=== PATIENT | female | born 1955 ===

== ENCOUNTER 2020-07-14 11:53 | Outpatient (REF) | payer MEDICARE, SELFPAY ==
--- NOTE | ~2020-07-14 | XR_ITS ---
EXAMINATION: XR KNEE, RIGHT CLINICAL INFORMATION: Right knee pain. COMPARISON: None TECHNIQUE: Four views of the right knee. FINDINGS: Mild medial femoral-tibial joint space narrowing is seen. Moderate lateral patellofemoral joint space narrowing is seen. There is no acute fracture or dislocation. No significant joint effusion is seen. The soft tissues are unremarkable. XR/XR knee RT 4V IMPRESSION: Medial femoral-tibial and lateral patellofemoral degenerative joint changes suggesting osteoarthritis.
== END 2020-07-14 11:54 | disposition home or self-care (01) ==
LOC: HO.XRAY 11:53
PROVIDERS: PCP Internal Medicine; Visit Provider Nurse Practitioner Primary Care
DX: M25.561 Pain in right knee (principal)
CPT/HCPCS: 73564

== ENCOUNTER 2022-02-21 13:01 | Outpatient (REF) | payer MEDICARE, SELFPAY ==
--- NOTE | ~2022-02-21 | MM_ITS ---
EXAMINATION: BONE DENSITOMETRY CLINICAL INDICATION: Osteoporosis. COMPARISON: None (current study represents initial baseline exam). TECHNIQUE: Using a [employer] DXA System (software version: 13.1) manufactured by [employer] dual-energy x-ray absorptiometry was performed of the lumbar spine and left hip. The images are of good technical quality. Summary results are attached. FINDINGS: AP SPINE L1-L3 (excluding L4): The data of L1-L4 has been changed to exclude the L4 vertebral body, because degenerative changes at this level may cause overestimation of lumbar spine density. BMD 0.925 g/cm2, Z-score -0.8, T-score -2.0, osteopenia. LEFT FEMUR, NECK: BMD 0.832 g/cm2, Z-score -0.1, T-score -1.5, osteopenia. LEFT FEMUR, TOTAL: BMD 1.008 g/cm2, Z-score 1.1, T-score 0.0, normal. IDENTIFIED RISK FACTORS: Early menopause, secondary osteoporosis, tobacco user (current smoker). HISTORY OF FRACTURE: None listed. MEDICATIONS: Multivitamin, vitamin D. MM/XR DEXA axial skeleton IMPRESSION: 1. DIAGNOSIS: Osteopenia based on the lowest T-score value of -2.0 in the lumbar spine applying World Health Organization criteria. 2. 10-YEAR FRACTURE RISK PREDICTION, FRAX: Major osteoporotic fracture (clinical spine, forearm, hip or shoulder) 5.2%. Hip fracture 1.0%. 3. Treatment Recommendations: NOF guidelines recommend consideration for treatment in postmenopausal women and men age 50 and older presenting with the following: -A hip or vertebral (clinical or morphometric) fracture. -T-score less than or equal to -2.5 at the femoral neck or spine after appropriate evaluation to exclude secondary causes. -Low bone mass at the hip or spine and a 10-year fracture probability by FRAX of greater than or equal to 3% for hip fracture or greater than or equal to 20% for major osteoporotic fracture based on the [place] adapted WHO algorithm. 4. Other Recommendations: All treatment decisions require clinical judgment and consideration of individual patient factors, including patient preferences, comorbidities, previous drug use, risk factors not captured in the FRAX model (e.g. frailty, falls, vitamin D deficiency, increased bone turnover, interval significant decline in bone density) and possible under or overestimation of fracture risk by FRAX. Additional medical evaluation for secondary cause of low bone mineral density may be appropriate. FUTURE SCAN RECOMMENDATION: People with diagnosed cases of osteoporosis or at high risk for fracture should have regular bone mineral density tests. For patients eligible for Medicare, routine testing is allowed once every 2 years. The testing frequency can be increased to one year for patients who have rapidly progressing disease, those who are receiving or discontinuing medical therapy to restore bone mass, or have additional risk factors.
== END 2022-02-21 13:02 | disposition home or self-care (01) ==
LOC: HO.MAMMO 13:01
PROVIDERS: PCP Internal Medicine; Visit Provider Internal Medicine
DX: Z13.820 Encounter for screening for osteoporosis (principal); Z78.0 Asymptomatic menopausal state
CPT/HCPCS: 77080

== ENCOUNTER 2023-07-22 09:18 | Outpatient (REF) | payer MEDICARE, SELFPAY ==
[2023-07-22 14:15] LABS: MANUAL DIFF FLAG NO
[2023-07-22 14:27] LABS: Basophils Absolute Auto 0.1 X10*3/uL (0.0-0.2); Basophils Percent Auto 0.9 % (0-2); Eosinophils Absolute Auto 0.1 X10*3/uL (0.0-0.4); Eosinophils Percent Auto 1.7 % (0-4); Hematocrit 37.5 % (37.0-47.0); Hemoglobin 12.2 g/dl (12.0-16.0); Imm Gran Abs Auto 0.01 X10*3/uL (0.00-0.03); Imm Gran Pct Auto 0.2 % (0.0-0.4); Lymphocytes Absolute Auto 2.2 X10*3/uL (1.2-4.9); Lymphocytes Percent Auto 35.3 % (20-40); Mean Corpuscular HGB Conc 32.5 g/dl (31.0-35.0); Mean Corpuscular Hemoglobin 30.3 pg (27.0-33.0); Mean Corpuscular Volume 93.1 fL (80.0-98.0); Mean Platelet Volume 11.1 fL (9.4-12.3); Monocytes Absolute Auto 0.6 X10*3/uL (0.1-1.2); Monocytes Percent Auto 8.9 % (2-11); Neutrophils Absolute Auto 3.4 x10*3/uL (2.0-8.3); Platelet Count 262 X10*3/uL (160-400); Red Blood Count 4.03 X10*6/uL (4.20-5.50); Red Cell Distribution Width 13.6 % (11.0-16.0); White Blood Count 6.3 X10*3/uL (4.8-10.8)
[2023-07-22 15:12] LABS: Alanine Aminotransferase 14 U/L (0-31); Albumin Level 3.9 g/dL (3.5-5.0); Alkaline Phosphatase 86 U/L (39-117); Anion Gap 11 (12-20); Aspartate Amino Transferase 20 U/L (5-31); Bilirubin Total 0.3 mg/dL (0.0-1.0); Blood Urea Nitrogen 10 mg/dL (9-16); Calcium 9.3 mg/dL (8.4-10.2); Carbon Dioxide 33 mmol/L (22-29); Chloride 100 mmol/L (96-108); Cholesterol 219 mg/dL (<200); Estimated Glomerular Filt Rate > 60; Glucose Random 121 mg/dL (60-115); HDL Cholesterol 50 mg/dL (>40); LDL Cholesterol Calculated 141 mg/dL (<100); Potassium 3.2 mmol/L (3.3-5.1); Sodium 141 mmol/L (135-145); Triglycerides 144 mg/dL (<150)
[2023-07-22 15:13] LABS: TSH reflex Free T4 4.18 uIU/mL (0.32-4.0)
[2023-07-22 15:44] LABS: Free T4 (Free Thyroxine) 0.97 ng/dL (0.71-1.85)
[2023-07-23 07:41] LABS: ~HepC Num1 0.07 S/CO (0.00-0.79); ~Hepatitis C Antibody Nonreactive (Nonreactive)
== END 2023-07-22 09:19 | disposition home or self-care (01) ==
LOC: HO.CHCLDS 09:18
PROVIDERS: Visit Provider Internal Medicine
DX: I10 Essential (primary) hypertension (principal)
CPT/HCPCS: 36415; 80053; 80061; 84439; 84443; 85025; 86803

== ENCOUNTER 2023-10-18 09:54 | Outpatient (AMB) | payer MEDICARE, SELFPAY ==
--- NOTE | 2023-10-18 07:53 | A.OFFVIS_ITS ---
Intake Visit Reasons: LDCT SD HPI HPI LDCT SD: Details: Initial visit for this 68yo smoker with a 27PYH. Patient has been smoking since age 12 for 53yo years at 1/2ppd. . Denies marijuana use. Denies second hand smoke exposure. Denies exposure to chemicals or substances like asbestos. . Denies known family history of lung cancer. Denies personal history of cancers. Denies chest CT in last year. . Denies recent travel outside the [place]. Denies recent respiratory illness or recent hospitalization for respiratory issues. Reports testing positive for COVID. Admits receiving COVID Vaccine. . Denies fever, chills, new/worsening cough, hemoptysis, hoarseness or dysphagia. Denies significant chest pain, significant dyspnea or unintentional weight loss. Patient Lung Cancer Screening Questionnaire reviewed with patient by provider. . Shared Decision Making Completed. Patient meets criteria. Discussed in detail with patient, the risk vs benefit of LDCT screening. Patient consents to proceed with scan. Discussed smoking cessation. [facility] Medical History Osteopenia Nicotine dependence, cigarettes, uncomplicated Surgical History (Updated 10/18/23 @ 10:19 by Zita Tristan PA-C) History of right inguinal hernia repair History of cholecystectomy Social History (Updated 10/18/23 @ 10:23 by Zita Tristan PA-C) Patient Tobacco Use Status: Current everyday Tobacco user Years Smoked: - onset 12yo, 1/2ppd x 53yrs, 27pyh Assessment & Plan Assessment & Plan (1) Nicotine dependence, cigarettes, uncomplicated: Comment: (current smoker - onset 12yo, 1/2ppd x 53yrs, 27pyh) Code(s): F17.210 - Nicotine dependence, cigarettes, uncomplicated Category: Medical Plan: - SDM visit completed today in office. - Patient meets criteria for LDCT for lung cancer screening purposes and is asymptomatic. - Smoking cessation counseling offered. Patients can always call [phone]. - Will arrange for a LDCT scan of the chest for screening purposes at [facility]. - Risks, benefits, and alternatives were discussed in detail and the patient agrees to proceed. - Risks discussed include but are not limited to: radiation exposure, anxiety during testing and while awaiting results, false negatives, false positives and possibility of additional intervention such as further imaging or surgical procedures for benign disease. - Benefits are obviously detection of lung cancer at an early stage which can lead to improved outcomes. - Discussed the importance of screening program compliance with adherence to yearly LDCT scan as scheduled - or sooner interval scans for personalized screening regimen. - Discussed follow up plan. Our office will send a letter discussing results and if needed set up phone call and office visit based on CT findings. - Patient educated on results categorization and the management decisions for suspicious findings potentially found on the screening LDCT scan. Any patient with a Lung RADS score of 3 or 4 will be reviewed by a multidisciplinary team at [facility] to form a plan of action in regards to scan findings. - If further work up is warranted for a suspicious lung finding this will be followed by the Lung Cancer Screening program in conjunction with the Thoracic Surgery Department at [facility]. - A copy of the office note and LDCT will be sent to the patient's PCP - as well as documentation on any associated further plans of care. - Incidental findings on LDCT are the PCP's responsibility. These findings are indicated with an S finding on the LDCT Assessment. A note discussing the findings will be sent to the PCP who is then responsible for further management. - All questions answered.? Coding Level of Care Code Lung Cancer Screening G0296 Diagnoses Nicotine dependence, cigarettes, uncomplicated F17.210
== END 2023-10-18 10:47 | disposition home or self-care (01) ==
PROVIDERS: PCP Internal Medicine; Referring Provider Internal Medicine; Visit Provider Physician Assistant Medical
DX: F17.210 Nicotine dependence, cigarettes, uncomplicated (principal)
CPT/HCPCS: G0296

== ENCOUNTER 2023-10-18 10:24 | Outpatient (REF) | payer MEDICARE, SELFPAY ==
--- NOTE | ~2023-10-18 | CT_ITS ---
EXAMINATION: CT LOW-DOSE SCREENING CHEST WITHOUT CONTRAST CLINICAL INFORMATION: Nicotine dependence, cigarettes, uncomplicated. The patient is a current smoker with a 55 pack-year history of smoking. COMPARISON: None available. TECHNIQUE: Multidetector volumetric CT imaging of the chest is performed on a Siemens SOMATOM Definition scanner without contrast using low dose technique. Additional 2D coronal and sagittal reformatted images and axial 3D maximum intensity projection (MIP) images are generated on the CT workstation. This CT examination was performed using dose optimization techniques as appropriate, variously including the following: *Automated exposure control. *Adjustment of mA and/or kV according to patient size (this includes techniques or standardized protocols for targeted exams where dose is matched to indication/reason for exam; i.e. extremities or head). *Use of iterative reconstruction technique. TOTAL EXAM DLP: 56 mGy-cm. CTDIvol: 1.85 mGy. FINDINGS: PULMONARY NODULES: No suspicious pulmonary nodules. LUNGS: Lungs bilaterally symmetrically expanded. There is mild emphysema and bronchial thickening without bronchiectasis. No effusion or pneumothorax. Central airways patent. MEDIASTINUM: No mediastinal, hilar or axillary adenopathy or free fluid collection. CORONARY ARTERY CALCIFICATION: None visualized on this study. THYROID GLAND: Unremarkable to the extent seen. CARDIOVASCULAR STRUCTURES: Aortic and heart size normal. No pericardial effusion. CHEST WALL/AXILLA: Unremarkable. UPPER ABDOMEN: Status post cholecystectomy. OSSEOUS STRUCTURES: No suspicious focal findings. CT/CT lung screening IMPRESSION: No findings seen suspicious for malignancy. ASSESSMENT: 1. Lung-RADS Category 1: Negative. There are no nodules or there are definitely benign nodules. N/A. 2. Lung-RADS Category S: Negative. There are no clinically significant or potentially clinically significant findings not related to the lungs requiring urgent additional evaluation. RECOMMENDATION: Continued routine annual low-dose CT lung screening in 1 year is recommended. An order for CT CHEST LOW DOSE CANCER SCREENING ([id number]) can be placed. Electronically signed by: Andrei Blakely MD 12/02/2023 09:08 PM EDT
== END 2023-10-18 10:25 | disposition home or self-care (01) ==
LOC: HO.CT 10:24
PROVIDERS: PCP Nurse Practitioner Primary Care; Visit Provider Physician Assistant Medical
DX: Z12.2 Encounter for screening for malignant neoplasm of respiratory organs (principal); F17.210 Nicotine dependence, cigarettes, uncomplicated
CPT/HCPCS: 71271; G0296

== ENCOUNTER 2024-03-03 14:28 | Outpatient (REF) | payer MEDICARE, SELFPAY ==
[2024-03-03 17:33] LABS: MANUAL DIFF FLAG NO
[2024-03-03 17:41] LABS: Basophils Absolute Auto 0.1 X10*3/uL (0.0-0.2); Basophils Percent Auto 0.9 % (0-2); Eosinophils Absolute Auto 0.1 X10*3/uL (0.0-0.4); Eosinophils Percent Auto 1.8 % (0-4); Hematocrit 37.4 % (37.0-47.0); Hemoglobin 12.1 g/dl (12.0-16.0); Imm Gran Abs Auto 0.02 X10*3/uL (0.00-0.03); Imm Gran Pct Auto 0.3 % (0.0-0.4); Lymphocytes Absolute Auto 2.7 X10*3/uL (1.2-4.9); Lymphocytes Percent Auto 35.7 % (20-40); Mean Corpuscular HGB Conc 32.4 g/dl (31.0-35.0); Mean Corpuscular Hemoglobin 29.8 pg (27.0-33.0); Mean Corpuscular Volume 92.1 fL (80.0-98.0); Mean Platelet Volume 11.1 fL (9.4-12.3); Monocytes Absolute Auto 0.7 X10*3/uL (0.1-1.2); Monocytes Percent Auto 8.6 % (2-11); Neutrophils Percent Auto 52.7 % (45-73); Platelet Count 286 X10*3/uL (160-400); Red Blood Count 4.06 X10*6/uL (4.20-5.50); Red Cell Distribution Width 13.2 % (11.0-16.0); White Blood Count 7.7 X10*3/uL (4.8-10.8)
[2024-03-03 18:02] LABS: Anion Gap 12 (12-20); Blood Urea Nitrogen 15 mg/dL (9-16); Calcium 9.5 mg/dL (8.4-10.2); Carbon Dioxide 31 mmol/L (22-29); Chloride 101 mmol/L (96-108); Estimated Glomerular Filt Rate > 60; Glucose Random 124 mg/dL (60-115); Magnesium 2.1 mg/dL (1.6-2.6); Potassium 3.1 mmol/L (3.3-5.1); Sodium 141 mmol/L (135-145)
== END 2024-03-03 14:29 | disposition home or self-care (01) ==
LOC: HO.CHCLDS 14:28
PROVIDERS: Visit Provider Nurse Practitioner Family
DX: M54.2 Cervicalgia (principal); R42 Dizziness and giddiness
CPT/HCPCS: 36415; 80048; 83735; 85025

== ENCOUNTER 2025-01-04 16:32 | Outpatient (REF) | payer MEDICARE, SELFPAY ==
--- NOTE | ~2025-01-04 | CT_ITS ---
CLINICAL HISTORY: F17.210 - Nicotine dependence, cigarettes, uncomplicated CT lung cancer screening Technique: Axial CT images of the chest using low-dose technique. Effective radiation dose: DLP 48.4 mGy.cm, CTDIvol 1.46 mGy Referring provider counseled the patient on shared decision-making for LDCT screening. Additional counseling was provided on smoking cessation. Comparison: 10/18/2023 Findings: Lung nodules RUL: None RML: None RLL: None SHERRELL: None Lingula: None LLL: None COPD: No significant emphysematous disease. Pleural spaces: Normal Coronary artery calcifications: None Limited upper abdomen: Unremarkable Other: None Impression: LungRADS 1: Negative exam. Continue annual screening with low dose Chest CT in 12 months. ##L1## This document has been electronically signed by: Vazquez Ayala MD on 01/05/2025 16:20:16
--- OUTSIDE RECORDS SUMMARY | 2025-01-04 20:26 | XMS_ITS | Encounter Summary ---
Author Organization [employer] Address [address] [facility] [address] [place] [address] Care Team Providers Care Commercial Roofing Estimator Name Role Phone Cristian Perales MD Primary Care Prov ider Encounter Details Date Type Department Care Team (Late st Contact Info) Description 02/22/2022 Orders Only [facility] [address] [place] [address] Cristian Perales MD [address], [place] [phone] Osteopenia of multiple sites (Primary Dx) Social History Tobacco Use Types Packs/Day Years Used Date Smoking Tobacco: Every Day Cigarettes Depression Answer Date Recorded Patient Health Questionnaire-9 Score 0 01/26/2022 Depression Answer Date Recorded Patient Health Questionnaire-2 Score 0 01/26/2022 Comments Unknown Sex and Gender Information Value Date Recorded Sex Assigned at Female 12/11/2021 10:36 AM EDT Legal Sex Female 10:36 AM EDT Gender Identity Choose not to disclose 10:36 AM EDT Sexual Orientation Choose not to disclose 2021 10:36 AM EDT COVID-19 Exposure Response Date Recorded In the last 10 days, have yo u been in contact with someone who was confirmed or suspected to have Coronavirus/COVID-19? No / Unsure 01/26/2022 8:39 AM EST documented as of this encounter Plan of Treatment Not on file documented as of this encounter Visit Diagnoses Diagnosis Osteopenia of multiple sites- Primary documented in this encounter Additional Health Concerns Assessment Noted Time PHQ-9 Depression Total Score: 0 01/27/20 22 8:59 AM EST documented as of this encounter Care Teams Commercial Roofing Estimator Relationship Specialty Start Date End Date Cristian Perales MD [address] [place] [phone] PCP - General Internal Medicine 05/18/19 documented as of this encounter
--- OUTSIDE RECORDS SUMMARY | 2025-01-04 20:26 | XMS_ITS | Encounter Summary ---
Author Organization [employer] Address [address] [facility] [address] [place] [address] Care Team Providers Care Neonatal Social Worker Name Role Phone Cristian Perales MD Primary Care Prov ider Encounter Details Date Type Department Care Team (Late st Contact Info) Description 12/08/2024 Orders Only [facility] [address] [place] [address] Provider, MD Diana Social History Tobacco Use Types Packs/Day Years Used Date Smoking Tobacco: Every Day Cigarettes 0.5 45 Smokeless Tobacco: Never Alcohol Use Standard Drinks/Week Comments Never 0 (1 standard drink = 0.6 oz pur e alcohol) Depression Answer Date Recorded Patient Health Questionnaire-9 Score 0 07/16/2023 Patient Health Questionnaire-9 Score 0 07/16/2023 Last PHQ-9: Questionnaire Data Not on file 0 07/16/2023 Housing Stability Answer Date Recorded What is your housing situation today? I have nelson franklin 07/16/[address] you li ve. Do you have problems with any of the following? None of the above 07/16/2023 Food Insecurity Answer Date Recorded Within the past 12 months, y ou worried that your food would run out before you got money to buy more: Never True 07/16/2023 Within the past 12 months,th e food you bought just didn't last and you didn't have enough money to get more: Never True 05/2023 Transportation Answer Date Recorded In the past 12 months, has l ack of transportation kept you from medical appts, meetings, work or from getting things needed for daily living? No 07/16/2023 Utilities Answer Date Recorded In the past 12 months, has t he electric, gas, oil or water company threatened to shut off services in your home? No 07/16/2023 Depression Answer Date Recorded Patient Health Questionnaire-2 Score 0 07/16/2023 Comments Unknown Sex and Gender Information Value Date Recorded Sex Assigned at Female 12/11/2021 10:36 AM EDT Legal Sex Female 10:36 AM EDT Gender Identity Choose not to disclose 10:36 AM EDT Sexual Orientation Choose not to disclose 2021 10:36 AM EDT documented as of this encounter Plan of Treatment Not on file documented as of this encounter Procedures Procedure Name Priority Date/Time Associated Diagnosis Comments MAMMOGRAPHY Routine 12/07/2024 1:17 PM EDT documented in this encounter Results * Hm Mammography (12/07/2024 1:17 PM EDT) Anatomical Region Laterality Modality Other Historical Provider HEALTH MAINTENANCE Final Result documented in this encounter Visit Diagnoses Not on filedocumented in this encounter Additional Health Concerns Assessment Noted Time PHQ-9 Depression Total Score: 0 07/16/19 24 1:56 PM EDT documented as of this encounter Care Teams Neonatal Social Worker Relationship Specialty Start Date End Date Cristian Perales MD [address] [place] [phone] PCP - General Internal Medicine 05/18/19 documented as of this encounter
--- OUTSIDE RECORDS SUMMARY | 2025-01-04 20:26 | XMS_ITS | Encounter Summary ---
Author Organization [employer] Address [address] [facility] [address] [place] [address] Care Team Providers Care Pressure Test Operator Name Role Phone Cristian Perales MD Primary Care Prov ider Encounter Details Date Type Department Care Team (Late st Contact Info) Description 08/29/2022 Orders Only [facility] [address] [place] [address] Génesis Castillo LPN Social History Tobacco Use Types Packs/Day Years [...] Procedure Name Priority Date/Time Associated Diagnosis Comments T4, FREE Routine 07/22/2023 9:19 AM EDT documented in this encounter Results * T4, Free (07/22/2023 9:19 AM EDT) Free T4 (Free Thyroxine) 0.97 0.71 - 1.85 ng/dL [facility] 07/22/2023 9:19 AM EDT 07/22/2023 2:20 PM EDT us Cristian Masters MD LAB BLOOD ORDERABL ES Final Result [facility] [address] [place] [address] [phone] documented in this encounter Visit Diagnoses Not on filedocumented in this encounter Additional Health Concerns Assessment Noted Time PHQ-9 Depression Total Score: 0 01/27/20 22 8:59 AM EST documented as of this encounter Care Teams Pressure Test Operator Relationship Specialty Start Date End Date Cristian Perales MD [address] [place] [phone] PCP - General Internal Medicine 05/18/19 documented as of this encounter
--- OUTSIDE RECORDS SUMMARY | 2025-01-04 20:26 | XMS_ITS | Encounter Summary ---
Author Organization [employer] Address [address] [facility] [address] [place] [address] Care Team Providers Care Laboratory Machinist Name Role Phone Cristian Perales MD Primary Care Prov ider Encounter Details Date Type Department Care Team (Late st Contact Info) Description 01/31/2022 Orders Only [facility] [address] [place] [address] Cristian Perales MD [address] [place], [place] [phone] Mixed hyperlipidemia (Primary Dx) Social History Tobacco Use Types [...] Procedure Name Priority Date/Time Associated Diagnosis Comments BD DEXA AXIAL Routine 02/21/2022 1:35 PM EST documented in this encounter Results * BD DEXA Axial (02/21/2022 1:35 PM EST) Anatomical Region Laterality Modality Body Radiographic Mary ging 02/21/2022 1:35 PM EST Narrative 02/22/2022 8:00 AM EST [facility] [address] [place], [place] [address] Mammography Report Signed Patient: Tish Hobbs MR#: [id number] : 1955 Acct:[id number] Age/Sex: 66 / F ADM Date: 02/21/22 Loc: HO.MAMMO Attending Dr: Cristian Masters MD Ordering Physician: Cristian Perales MD Res ults: Date of Service: 02/21/22 Follow Up: Procedure(s): XR DEXA axial skeleton Accession Number(s): [id number] cc: Cristian Perales MD EXAMINATION: BONE DENSITOMETRY CLINICAL INDICATION: Osteoporosis. COMPARISON: None (current study represents initial baseline exam). TECHNIQUE: Using a [employer] DXA System (software version: 13.1) manufactured by [employer], dual-energy x-ray absorptiometry was performed of the lumbar spine and left hip. The images are of good technical quality. Summary results are attached. FINDINGS: AP SPINE L1-L3 (excluding L4): The data of L1-L4 has been changed to exclude the L4 vertebral body, because degenerative changes at this level may cause overestimation of lumbar spine density. BMD 0.925 g/cm2, Z-score -0.8, T-score -2.0, osteopenia. LEFT FEMUR, NECK: BMD 0.832 g/cm2, Z-score -0.1, T-score -1.5, osteopenia. LEFT FEMUR, TOTAL: BMD 1.008 g/cm2, Z-score 1.1, T-score 0.0, normal. IDENTIFIED RISK FACTORS: Early menopause, secondary osteoporosis, tobacco user (current smoker). HISTORY OF FRACTURE: None listed. MEDICATIONS: Multivitamin, vitamin D. MM/XR DEXA axial skeleton IMPRESSION: 1. DIAGNOSIS: Osteopenia based on the lowest T-score value of -2.0 in the lumbar spine applying World Health Organization criteria. 2. 10-YEAR FRACTURE RISK PREDICTION, FRAX: Major osteoporotic fracture (clinical spine, forearm, hip or shoulder) 5.2%. Hip fracture 1.0%. 3. Treatment Recommendations: NOF guidelines recommend consideration for treatment in postmenopausal women and men age 50 and older presenting with the following: -A hip or vertebral (clinical or morphometric) fracture. -T-score less than or equal to -2.5 at the femoral neck or spine after appropriate evaluation to exclude secondary causes. -Low bone mass at the hip or spine and a 10-year fracture probability by FRAX of greater than or equal to 3% for hip fracture or greater than or equal to 20% for major osteoporotic fracture based on the [place] adapted WHO algorithm. 4. Other Recommendations: All treatment decisions require clinical judgment and consideration of individual patient factors, including patient preferences, comorbidities, previous drug use, risk factors not captured in the FRAX model (e.g. frailty, falls, vitamin D deficiency, increased bone turnover, interval significant decline in bone density) and possible under or overestimation of fracture risk by FRAX. Additional medical evaluation for secondary cause of low bone mineral density may be appropriate. FUTURE SCAN RECOMMENDATION: People with diagnosed cases of osteoporosis or at high risk for fracture should have regular bone mineral density tests. For patients eligible for Medicare, routine testing is allowed once every 2 years. The testing frequency can be increased to one year for patients who have rapidly progressing disease, those who are receiving or discontinuing medical therapy to restore bone mass, or have additional risk factors. Dictated By: Andrei Strickland MD Signed By: <Electronically signed by Andrei Strickland MD in OV> 02/22/22 0757 DD/ 1335 TD/TT: Picture Hanger: ALLI Procedure Note Donotuseinterpreter, Image - 02/22/2022 [facility] [address] [place], [place] [address] Mammography Report Signed Patient: Ivanna Hobbs#: [id number] : 4Acct:[id number] Age/Sex: 66 / FADM Date: 02/21/22 Loc: HO.MAMMO Attending Dr: Cristian Masters MD Ordering Physician: Cristian Perales ults: Date of Service: 02/21/22Follow Up: Procedure(s): XR DEXA axial skeleton Accession Number(s): [id number] cc: Cristian Perales MD EXAMINATION: BONE DENSITOMETRY CLINICAL INDICATION: Osteoporosis. COMPARISON: None (current study represents initial baseline exam). TECHNIQUE: Using a [employer] DXA System (software version: 13.1) manufactured by [employer], dual-energy x-ray absorptiometry was performed of the lumbar spine and left hip. The images are of good technical quality. Summary results are attached. FINDINGS: AP SPINE L1-L3 (excluding L4): The data of L1-L4 has been changed to exclude the L4 vertebral body, because degenerative changes at this level may cause overestimation of lumbar spine density. BMD 0.925 g/cm2, Z-score -0.8, T-score -2.0, osteopenia. LEFT FEMUR, NECK: BMD 0.832 g/cm2, Z-score -0.1, T-score -1.5, osteopenia. LEFT FEMUR, TOTAL: BMD 1.008 g/cm2, Z-score 1.1, T-score 0.0, normal. IDENTIFIED RISK FACTORS: Early menopause, secondary osteoporosis, tobacco user (current smoker). HISTORY OF FRACTURE: None listed. MEDICATIONS: Multivitamin, vitamin D. MM/XR DEXA axial skeleton IMPRESSION: 1. DIAGNOSIS: Osteopenia based on the lowest T-score value of -2.0 in the lumbar spine applying World Health Organization criteria. 2. 10-YEAR FRACTURE RISK PREDICTION, FRAX: Major osteoporotic fracture (clinical spine, forearm, hip or shoulder) 5.2%. Hip fracture 1.0%. 3. Treatment Recommendations: NOF guidelines recommend consideration for treatment in postmenopausal women and men age 50 and older presenting with the following: -A hip or vertebral (clinical or morphometric) fracture. -T-score less than or equal to -2.5 at the femoral neck or spine after appropriate evaluation to exclude secondary causes. -Low bone mass at the hip or spine and a 10-year fracture probability by FRAX of greater than or equal to 3% for hip fracture or greater than or equal to 20% for major osteoporotic fracture based on the [place] adapted WHO algorithm. 4. Other Recommendations: All treatment decisions require clinical judgment and consideration of individual patient factors, including patient preferences, comorbidities, previous drug use, risk factors not captured in the FRAX model (e.g. frailty, falls, vitamin D deficiency, increased bone turnover, interval significant decline in bone density) and possible under or overestimation of fracture risk by FRAX. Additional medical evaluation for secondary cause of low bone mineral density may be appropriate. FUTURE SCAN RECOMMENDATION: People with diagnosed cases of osteoporosis or at high risk for fracture should have regular bone mineral density tests. For patients eligible for Medicare, routine testing is allowed once every 2 years. The testing frequency can be increased to one year for patients who have rapidly progressing disease, those who are receiving or discontinuing medical therapy to restore bone mass, or have additional risk factors. Dictated By: Andrei Strickland MD Signed By: <Electronically signed by Andrei Strickland MD in OV> 02/22/22 0757 DD/ 1335 TD/TT: Picture Hanger: [facility] External Provider IMG DXA PROCEDURES Final Result documented in this encounter Visit Diagnoses Diagnosis Mixed hyperlipidemia- Primary documented in this encounter Additional Health Concerns Assessment Noted Time PHQ-9 Depression Total Score: 0 01/27/20 22 8:59 AM EST documented as of this encounter Care Teams Laboratory Machinist Relationship Specialty Start Date End Date Cristian Perales MD [address] [place] [phone] PCP - General Internal Medicine 05/18/19 documented as of this encounter
--- OUTSIDE RECORDS SUMMARY | 2025-01-04 20:26 | XMS_ITS | Encounter Summary ---
Author Organization [employer] Address [address] [place] [address] 7 [place] [address] Care Team Providers Care Hand Printed Circuit Board Assembler Name Role Phone Cristian Perales MD Primary Care Prov ider Reason for Visit * Reason Comments Med Refill Encounter Details Date Type Department Care Team ([facility] st Contact Info) Description 06/14/2023 Refill [facility] MED & PEDS [address], [place] [phone] Cristian Perales MD [address] [place] [address] Social History Tobacco Use Types Packs/Day Years Used Date Smoking Tobacco: Every Day Cigarettes 0.5 45 Smokeless Tobacco: Never Alcohol Use Standard Drinks/Week Comments Never 0 (1 standard drink = 0.6 oz pur e alcohol) Depression Answer Date Recorded Patient Health Questionnaire-9 Score 0 01/26/2022 Housing Stability Answer Date Recorded What is your housing situation today? I have [facility] [place] 11/27/[address] you li ve. Do you have problems with any of the following? None of the above 11/27/2022 Food Insecurity Answer Date Recorded Within the past 12 months, y ou worried that your food would run out before you got money to buy more: Never True 11/27/2022 Within the past 12 months,th e food you bought just didn't last and you didn't have enough money to get more: Never True Transportation Answer Date Recorded In the past 12 months, has l ack of transportation kept you from medical appts, meetings, work or from getting things needed for daily living? No 11/27/2022 Utilities Answer Date Recorded In the past 12 months, has t he electric, gas, oil or water company threatened to shut off services in your home? No 11/27/2022 Depression Answer Date Recorded Patient Health Questionnaire-2 Score 0 04/09/2023 Comments Unknown Sex and Gender Information Value Date Recorded Sex Assigned at Female 12/11/2021 10:36 AM EDT Legal Sex Female 10:36 AM EDT Gender Identity Choose not to disclose 10:36 AM EDT Sexual Orientation Choose not to disclose 2021 10:36 AM EDT documented as of this encounter Plan of Treatment Not on file documented as of this encounter Visit Diagnoses Not on filedocumented in this encounter Additional Health Concerns Assessment Noted Time PHQ-9 Depression Total Score: 0 01/27/20 22 8:59 AM EST documented as of this encounter Care Teams Hand Printed Circuit Board Assembler Relationship Specialty Start Date End Date Cristian Perales MD [address] [place] [id number] PCP - General Internal Medicine 05/18/19 documented as of this encounter
--- OUTSIDE RECORDS SUMMARY | 2025-01-04 20:26 | XMS_ITS | Encounter Summary ---
Author Organization [employer] Address [address] [place] [address] Care Team Providers Care Expeller Operator Name Role Phone Cristian Perales MD Primary Care Prov ider Encounter Details Date Type Department Care Team ([facility] st Contact Info) Description 12/28/2022 Telephone [facility] CHC MED & PEDS [address] [place], [place] [phone] Cristian Perales MD [address] [place], [place] [phone] Social History Tobacco Use Types Packs/Day Years [...] AM EDT documented as of this encounter Miscellaneous Notes * Telephone Encounter - Juan Francisco Carlos - 12/28/2022 9:42 AM EST Tc from pt stating she received a voice message from [facility] and is unsure what it was regarding. Pt requesting a call back. Please contact at [phone] documented in this encounter Plan of Treatment Not on file documented as of this encounter Visit Diagnoses Not on filedocumented in this encounter Additional Health Concerns Assessment Noted Time PHQ-9 Depression Total Score: 0 01/27/20 22 8:59 AM EST documented as of this encounter Care Teams Expeller Operator Relationship Specialty Start Date End Date Cristian Perales MD [address] [place] [phone] PCP - General Internal Medicine 05/18/19 documented as of this encounter
--- OUTSIDE RECORDS SUMMARY | 2025-01-04 20:26 | XMS_ITS | Encounter Summary ---
Author Organization [employer] Address [address] [place] [address] 7 [place] [address] Care Team Providers Care Wine Steward Name Role Phone Cristian Perales MD Primary Care Prov ider Reason for Visit * Reason Comments Med Refill Encounter Details Date Type Department Care Team ([facility] st Contact Info) Description 12/30/2024 Refill [facility] MED & PEDS [address] [place], [place] [phone] Cristian Perales MD [address] [place] [address] Hypokalemia Social History Tobacco Use Types Packs/Day Years [...] as of this encounter Visit Diagnoses Diagnosis Hypokalemia Hypopotassemia documented in this encounter Additional Health Concerns Assessment Noted Time PHQ-9 Depression Total Score: 0 07/16/19 24 1:56 PM EDT documented as of this encounter Care Teams Wine Steward Relationship Specialty Start Date End Date Cristian Perales MD [address] [place] [address] PCP - General Internal Medicine 05/18/19 documented as of this encounter
--- OUTSIDE RECORDS SUMMARY | 2025-01-04 20:26 | XMS_ITS | Clinical Summary ---
Author Organization [facility] Address [address] [place] [address] Phone Care Team Providers Care Awning Craftsperson Name Role Phone Cristian Perales Primary Care Provide r Encounters Date Type Department Care Team Description 12/07/2024 10:45 AM EDT - 12/07/2024 11:59 PM EDT Hospital [facility] [address] [phone] Encounter for screening mammogram for breast cancer Discharge Disposition: Home or Self Care from Last 3 Months Surgical History Surgery Date Site/Laterality Comments CHOLECYSTECTOMY PROCEDURE: HISTORICAL CHOLECYSTECTOMY APPENDECTOMY PROCEDURE: HISTORICAL APPENDECTOMY Medical History Medical History Date Comments Chronic obstructive pulmonar y disease (CMS/HCC V24, CMS/HCC V28) 04/03/2017 DX:Chronic obstructive pulm onary disease (HCC) Herpes simplex type 1 infection 02/12/2017 DX:Herpes simplex type 1 infection Hyperlipidemia 09/25/2017 DX:Hyperlipidemi a Hypertension 11/13/2017 DX:Hypertension Internal hemorrhoids 09/06/2014 DX:Internal hemorrhoids Family History Relation Name Status Comments Father Mother Alive Social History Tobacco Use Types Packs/Day Years Used Date Smoking Tobacco: Light Smoker Smokeless Tobacco: Never Alcohol Use Standard Drinks/Week Comments Yes 0 (1 standard drink = 0.6 oz pur e alcohol) Comments Unknown Sex and Gender Information Value Date Recorded Sex Assigned at Not on file Legal Sex Female 2:54 AM EST Gender Identity Not on file Sexual Orientation Not on file Obstetrics History Plan of Treatment Health Maintenance Due Date Last Done Comments Colorectal Cancer Screening: Colonoscopy 1955 DTaP,Tdap,and Td Vaccines (1 - Tdap) 1972 RSV Immunization Adult Patients (1 - Risk 50-74 years 1-dose series) 09/24/2003 Zoster Vaccines (1 of 2) 09/24/2003 Falls Risk Assessment 01/14/2022 Medicare Annual Wellness Visit 01/14/2022 Osteoporosis Screening (Bone Density Screening) 01/14/2022 Social Influencers of Health Screening 01/14/2022 Hypertension/CHF/CAD Annual BMP Blood Test 01/24/2022 Depression Screening 02/12/2024 COVID-19 Vaccine ( season) 2024 01/12/2021, 06/06/2020, 04/26/2020 Influenza Vaccine (#1) 2024 Lung Cancer Screening (Low Dose CT) 10/17/2024 10/18/2023 Breast Cancer Screening 12/07/2026 12/08/19, 11/12/2022, 06/21/2021, Additional history exists Cholesterol Screening (Lipid Panel) 07/21/2028 07/22/2023 Pneumococcal Vaccine: 50+ Years Completed 01/30/2022 Hepatitis C Screening Completed 07/22/2023 HIB Vaccines Aged Out No longer eligi ble based on patient's age to complete this topic HPV Vaccines Aged Out No longer eligi ble based on patient's age to complete this topic Hepatitis A Vaccines Aged Out No long er eligible based on patient's age to complete this topic Hepatitis B Vaccines Aged Out No long er eligible based on patient's age to complete this topic IPV Vaccines Aged Out No longer eligi ble based on patient's age to complete this topic MMR Vaccines Aged Out No longer eligi ble based on patient's age to complete this topic Meningococcal ACWY Vaccine Aged Out N o longer eligible based on patient's age to complete this topic Meningococcal B Vaccine Aged Out No l onger eligible based on patient's age to complete this topic RSV Immunization Patients Under 20 months Aged Out No longer eligible based on patient's age to complete this topic Varicella Vaccines Aged Out No longer eligible based on patient's age to complete this topic Procedures Procedure Name Priority Date/Time Associated Diagnosis Comments MG MAMMO DIGITAL SCREENING W STEVE BILAT Routine 12/07/2024 11:12 AM EDT Encounter for screening mammogram for breast cancer from Last 3 Months Results * MG Mammo Digital Screening w Steve bilat (12/07/2024 11:12 AM EDT) Anatomical Region Laterality Modality Breast Bilateral Mammography 12/07/2024 11:4 9 AM EDT Impressions 12/07/2024 12:14 PM EDT Benign. BI-RADS CATEGORY: 2 - BENIGN RECOMMENDATION: Screening bilateral mammogram is recommended in 1 year. Mammo Location: [facility], [address] [place] [address], [id number], . -------- FINAL REPORT -------- Dictated By: Tiago Santoyo Dictated Date: 12/07/2024 11:49 ET Assigned Physician: Tiago Santoyo Reviewed and Electronically Signed By: Tiago Santoyo Signed Date: 12/07/2024 12:14 ET Workstation ID: [id number] Transcribed By: Self Edit Transcribed Date: 12/07/2024 11:49 ET Narrative 12/07/2024 12:14 PM EDT CLINICAL: 69 years old, Female, routine annual exam. COMPARISON: 11/12/2022. TECHNIQUE: Bilateral MLO and CC views were obtained digitally with 3-D mammogram (digital breast tomosynthesis). Computer-aided detection was utilized in evaluation of this exam (CAD). FINDINGS: Scattered benign calcifications. No suspicious mass or architectural distortion. No suspicious calcification. There has been no significant change from prior exam(s). BREAST DENSITY: B - There are scattered areas of fibroglandular density. Procedure Note Tiago Santoyo MD - 12/07/2024 CLINICAL: 69 years old, Female, routine annual exam. COMPARISON: 11/12/2022. TECHNIQUE: Bilateral MLO and CC views were obtained digitally with 3-Dmammogram (digital breast tomosynthesis). Computer-aided detection wasutilized in evaluation of this exam (CAD). FINDINGS: Scattered benign calcifications. No suspicious mass or architectural distortion. No suspiciouscalcification. There has been no significant change from prior exam(s). BREAST DENSITY: B - There are scattered areas of fibroglandular density. IMPRESSION: Benign. BI-RADS CATEGORY: 2 - BENIGN RECOMMENDATION: Screening bilateral mammogram is recommended in 1 year. Mammo Location: [facility], [address] [place] [address], [id number], . -------- FINAL REPORT -------- Dictated By: Tiago Santoyo Dictated Date: 12/07/2024 11:49 ET Assigned Physician: Tiago Santoyo Reviewed and Electronically Signed By: Tiago Santoyo Signed Date: 12/07/2024 12:14 ET Workstation ID: [id number] Transcribed By: Self Edit Transcribed Date: 12/07/2024 11:49 ET us Self Referral Sppl IMG BI PROCEDURES Final Resul t from Last 3 Months Insurance [employer] MEDICARE ADVANTAGE Care Teams Awning Craftsperson Relationship Specialty Start Date End Date Cristian Perales [address] [place] [phone] PCP - General Internal Medicine 12/07/24
--- OUTSIDE RECORDS SUMMARY | 2025-01-04 20:26 | XMS_ITS | Clinical Summary ---
Author Organization [employer] Address [address] [facility] [address] [place] [address] Care Team Providers Care Nitroglycerin Separator Operator Name Role Phone Cristian Perales MD Primary Care Prov ider Allergies No known active allergies Medications nicotine (Nicoderm CQ) 14 MG/24HR patch Place 1 patch on the skin 1 (one) time each day at the same time. 42 patch 02/20/19 24 Active nicotine polacrilex (Commit) 2 MG lozenge Dissolve 1 lozenge (2 mg) in the mouth if needed for smoking cessation. 100 lozenge 02/20/19 24 Active Diclofenac Sodium 1 % gel Apply small amount topically to the affected area if needed in the morning and at bedtime (As needed). 100 g 1 03/10/19 25 Active cyclobenzaprin e (Flexeril) 10 MG tabletIndicati ons:Muscle strain Take 1 tablet (10 mg) by mouth at bedtime for 10 days. 10 tablet 08/18/19 25 Active atorvastatin (Lipitor) 40 MG tablet TAKE 1 TABLET (40 MG) BY MOUTH ONCE PER DAY. 90 tablet 3 11/07/19 25 Active losartan (Cozaar) 100 MG tabletIndicati ons:Hypokalemi a TAKE 1 TABLET (100 MG) BY MOUTH ONCE PER DAY. 90 tablet 1 12/31/19 25 Active losartan (Cozaar) 100 MG tabletIndicati ons:Hypokalemi a TAKE 1 TABLET (100 MG) BY MOUTH ONCE PER DAY. 90 tablet 1 04/03/19 25 025 Discontinued Active Problems Problem Noted Date Diagnosed Date RUQ pain 08/17/2024 Hypokalemia 03/18/2024 Muscle pain, cervical 03/03/2024 Light headedness 03/03/2024 Physical exam 07/16/2023 Tobacco dependence 02/20/2023 Assessment & Plan (04/10/2023 1:40 PM EST): Patient has > 30 pack year smoking hx, will order for lung cancer screening Closed fracture of multiple ribs of left side with routine healing 12/17/2022 Assessment & Plan (03/26/2023 11:24 PM EST): Pain has improved, patient able to elevate arms, will clear to return to work, told to apply cold pads, and avoid heavy lifting the first week of her job Assessment & Plan (12/27/2022 1:11 PM EST): Patient continues with left rib cage pain, it has improved, but I dont think its appropiate to start work, will provide letter for additional week, will follow up after to clear for work Assessment & Plan (12/17/2022 5:22 PM EST): Patient had left rib fracture after she fell when she bumped into some stuff on the floor. Patient still with pain but improving, still with left sided chest wall hematoma, told to apply cold pads, rest, continue tylenol/ibuprofen for pain, will follow up in 1 week to determine when is appropriate to return to work Primary hypertension 05/21/2022 Assessment & Plan (11/21/2023 11:38 AM EDT): Not at target, will change to losartan 100mg and hydrochlorothiazide 25mg, continue low sodium diet, will follow up in 1 month Assessment & Plan (07/16/2023 2:52 PM EDT): Controlled on lisinopril/hydrochlorothiazide, continue low sodium diet and exercise as tolerated, follow up in 4 months, new labs will be ordered Assessment & Plan (04/10/2023 1:39 PM EST): Patient could not provide blood pressure results for today, she is takign lisinopril/hydrochlorothiazide 20-25mg, refers from the results she recall are below 140/90, reinforced importance of low sodium diet, told to keep daily bp log, in case of number being >80% above 140/90 to call back for bp discussion Assessment & Plan (05/21/2022 9:33 AM EDT): Not at target, she is not monitoring daily, reinforced low sodium diet and exercise as tolerated, schedule nurse visit in 2 weeks for follow up Mixed hyperlipidemia 01/26/2022 Assessment & Plan (05/21/2022 9:32 AM EDT): Patient refers taking atorvastatin daily, no side effects reported. Will order new hepatic/lipid panel test, will call with results, continue same treatment. Assessment & Plan (01/26/2022 9:23 AM EST): Patient refers she has not been taking rosuvastatin, refers upseting her stomach and having muscle pain?? Elevated BP without diagnosis of hypertension Assessment & Plan (01/26/2022 9:22 AM EST): Blood pressure has maintained stable, reinforced low sodium diet and exercise, new labs will be ordered Neck muscle spasm 01/26/2022 Assessment & Plan (01/26/2022 9:24 AM EST): Patient has visited er in multiple occasion due to neck muscle spasm, she has ibuprofen and cyclobenzaprine, will refer to PT Screening for malignant neoplasm of colon 2021 Assessment & Plan (04/10/2023 1:42 PM EST): [facility] to update chart Menopause 01/26/2022 Assessment & Plan (01/26/2022 9:25 AM EST): Will order dexa scan Encounters Date Type Department Care Team Description 12/30/[address] [facility] PEDS [address] [place] [address] Cristian Perales MD Hypokalemia 12/08/2024 Orders Only [facility] [address] [place] [address] Provider, MD Diana 11/05/[address] [facility] PEDS [address] [place] [address] Cristian Perales MD from Last 3 Months Immunizations Immunization Administration Dates Next Due Moderna Covid-19 Vaccine 12+ 01/12/2021,06/07/19 21,04/26/2020 Pneumococcal Conjugate PCV 20 01/30/2022 Social History Tobacco Use Types Packs/Day Years Used Date Smoking Tobacco: Every Day Cigarettes 0.5 45 Smokeless Tobacco: Never Tobacco Cessation:Ready to Q uit: Not Asked; Counseling Given: Not Answered Alcohol Use Standard Drinks/Week Comments Never 0 [...] not to disclose 2021 10:36 AM EDT Last Filed Vital Signs Vital Sign Reading Time Taken Comments Blood Pressure 153/78 08/17/2024 12:58 PM EDT Pulse 74 08/17/2024 12:58 PM EDT Temperature 36.7 C (98 F) 08/17/2024 12:58 PM EDT Respiratory Rate 17 08/17/2024 12:58 PM EDT Oxygen Saturation 96% 08/17/2024 12:58 PM EDT Inhaled Oxygen Concentration - - Weight 79.8 kg (176 lb) 08/17/2024 12:58 PM EDT Height 153 cm (5' 0.24 ) 03/03/2024 12:56 PM EST Body Mass Index 34.1 03/03/2024 12:56 PM EST Plan of Treatment Health Maintenance Due Date Last Done Comments CT Colonography 1955 Colonoscopy 1955 Colorectal Cancer Screening 1955 FIT DNA/Cologuard 1955 FIT 1955 FOBT 1955 Sigmoidoscopy 1955 DTaP/Tdap/Td Vaccines (1 - Tdap) 1972 Zoster Vaccines (1 of 2) 09/24/2003 Depression Screening 07/15/2024 07/16/2023, 07/16/19 24 SDOH Screening 07/15/2024 07/16/2023 COVID-19 Vaccine ( season) 2024 01/12/2021, 06/06/2020, 04/26/2020 Influenza Vaccine (#1) 2024 Lung Cancer Screening 10/17/2024 10/18/2023 Alcohol/Substance Use Screening 03/03/2025 03/03/2024 Tobacco Screening 08/17/2025 08/17/2024 Mammogram 12/07/2026 12/07/2024, 11/12, 12/07/2024, Additional history exists Lipid Panel 07/21/2028 07/22/2023, 01/11, 11/25/2020, Additional history exists RSV Patients and Patients Aged 60 years or older (1 - 1-dose 75+ series) 2028 Pneumococcal Vaccine: 50+ Years Completed 01/30/2022 Hepatitis [...] patient's age to complete this topic Meningococcal Vaccine Aged Out No tracy evy eligible based on patient's age to complete this topic RSV under 20 months Aged Out No longe r eligible based on patient's age to complete this topic Rotavirus Vaccines Aged Out No longer eligible based on patient's age to complete this topic Procedures Procedure Name Priority Date/Time Associated Diagnosis Comments MAMMOGRAPHY Routine 12/07/2024 1:17 PM EDT LDCT LUNG SCREENING Routine 10/18/2023 1 0:31 AM EDT HEPATITIS C AB W/REFL TO HCV RNA, QN, PCR Routine 07/22/2023 9:19 AM EDT Primary hypertension LIPID PANEL, STANDARD Routine 07/22/2023 9:19 AM EDT Primary hypertension from Last 3 Months or Most Recently Relevant to Health Maintenance Results * Hm Mammography (12/07/2024 1:17 PM EDT) Anatomical Region Laterality Modality Other us Historical Provider HEALTH MAINTENANCE Final Result * CT Lung Screening Low dose (10/18/2023 10:31 AM EDT) Anatomical Region Laterality Modality Lung Computed Tomogra phy 10/18/2023 10:3 1 AM EDT Narrative 12/02/2023 9:12 PM EDT [address] [address] [address] Scan Report Signed Patient: Tish Hobbs MR#: [id number] : 1955 Acct:[id number] Age/Sex: 68 / F ADM Date: 10/18/23 Loc: HO.CT Attending Dr: Zita Tristan PA-C Ordering Physician: Zita Tristan PA-C Date of Service: 10/18/23 Procedure(s): CT lung screening Accession Number(s): [id number] cc: Zita Tristan PA-C; KASHIF LINDSEY NP EXAMINATION: CT LOW-DOSE SCREENING CHEST WITHOUT CONTRAST CLINICAL INFORMATION: Nicotine dependence, cigarettes, uncomplicated. The patient is a current smoker with a 55 pack-year history of smoking. COMPARISON: None available. TECHNIQUE: Multidetector volumetric CT imaging of the chest is performed on a Siemens SOMATOM Definition scanner without contrast using low dose technique. Additional 2D coronal and sagittal reformatted images and axial 3D maximum intensity projection (MIP) images are generated on the CT workstation. This CT examination was performed using dose optimization techniques as appropriate, variously including the following: *Automated exposure control. *Adjustment of mA and/or kV according to patient size (this includes techniques or standardized protocols for targeted exams where dose is matched to indication/reason for exam; i.e. extremities or head). *Use of iterative reconstruction technique. TOTAL EXAM DLP: 56 mGy-cm. CTDIvol: 1.85 mGy. FINDINGS: PULMONARY NODULES: No suspicious pulmonary nodules. LUNGS: Lungs bilaterally symmetrically expanded. There is mild emphysema and bronchial thickening without bronchiectasis. No effusion or pneumothorax. Central airways patent. MEDIASTINUM: No mediastinal, hilar or axillary adenopathy or free fluid collection. CORONARY ARTERY CALCIFICATION: None visualized on this study. THYROID GLAND: Unremarkable to the extent seen. CARDIOVASCULAR STRUCTURES: Aortic and heart size normal. No pericardial effusion. CHEST WALL/AXILLA: Unremarkable. UPPER ABDOMEN: Status post cholecystectomy. OSSEOUS STRUCTURES: No suspicious focal findings. CT/CT lung screening IMPRESSION: No findings seen suspicious for malignancy. ASSESSMENT: 1. Lung-RADS Category 1: Negative. There are no nodules or there are definitely benign nodules. N/A. 2. Lung-RADS Category S: Negative. There are no clinically significant or potentially clinically significant findings not related to the lungs requiring urgent additional evaluation. RECOMMENDATION: Continued routine annual low-dose CT lung screening in 1 year is recommended. An order for CT CHEST LOW DOSE CANCER SCREENING ([id number]) can be placed. Electronically signed by: Andrei Blakely MD 12/02/2023 09:08 PM EDT RP Dictated By: Andrei Blakely MD Signed By: <Electronically signed by Andrei Blakely MD in OV> 12/02/232107 DD/ 1031 TD/TT: 10/18/23 1036 Trades Helper: POLO Procedure Note Donotuseinterpreter, Image - 12/02/[address] [address] [address] Scan Report Signed Patient: Ivanna Hobbs#: [id number] : 4Acct:[id number] Age/Sex: 68 / FADM Date: 10/18/23 Loc: HO.CT Attending Dr: Zita Tristan PA-C Ordering Physician: Zita Tristan PA-C Date of Service: 10/18/23 Procedure(s): CT lung screening Accession Number(s): [id number] cc: Zita Tristan PA-C; KASHIF LINDSEY NP EXAMINATION: CT LOW-DOSE SCREENING CHEST WITHOUT CONTRAST CLINICAL INFORMATION: Nicotine dependence, cigarettes, uncomplicated. The patient is a current smoker with a 55 pack-year history of smoking. COMPARISON: None available. TECHNIQUE: Multidetector volumetric CT imaging of the chest is performed on a Siemens SOMATOM Definition scanner without contrast using low dose technique. Additional 2D coronal and sagittal reformatted images and axial 3D maximum intensity projection (MIP) images are generated on the CT workstation. This CT examination was performed using dose optimization techniques as appropriate, variously including the following: *Automated exposure control. *Adjustment of mA and/or kV according to patient size (this includes techniques or standardized protocols for targeted exams where dose is matched to indication/reason for exam; i.e. extremities or head). *Use of iterative reconstruction technique. TOTAL EXAM DLP: 56 mGy-cm. CTDIvol: 1.85 mGy. FINDINGS: PULMONARY NODULES: No suspicious pulmonary nodules. LUNGS: Lungs bilaterally symmetrically expanded. There is mild emphysema and bronchial thickening without bronchiectasis. No effusion or pneumothorax. Central airways patent. MEDIASTINUM: No mediastinal, hilar or axillary adenopathy or free fluid collection. CORONARY ARTERY CALCIFICATION: None visualized on this study. THYROID GLAND: Unremarkable to the extent seen. CARDIOVASCULAR STRUCTURES: Aortic and heart size normal. No pericardial effusion. CHEST WALL/AXILLA: Unremarkable. UPPER ABDOMEN: Status post cholecystectomy. OSSEOUS STRUCTURES: No suspicious focal findings. CT/CT lung screening IMPRESSION: No findings seen suspicious for malignancy. ASSESSMENT: 1. Lung-RADS Category 1: Negative. There are no nodules or there are definitely benign nodules. N/A. 2. Lung-RADS Category S: Negative. There are no clinically significant or potentially clinically significant findings not related to the lungs requiring urgent additional evaluation. RECOMMENDATION: Continued routine annual low-dose CT lung screening in 1 year is recommended. An order for CT CHEST LOW DOSE CANCER SCREENING ([id number]) can be placed. Electronically signed by: Andrei Blakely MD 12/02/2023 09:08 PM EDT Dictated By: Andrei Blakely MD Signed By: <Electronically signed by Andrei Blakely MD in OV> 12/02/232107 DD/ 1031 TD/TT: 10/18/23 1036 Trades Helper: POLO [facility] External Provider IMG CT PROCEDURES Edited Result - Final * Hepatitis C Antibody with Reflex to HCV, RNA, Quantitative, Real-Time PCR (07/22/2023 9:19 AM EDT) Hepatitis C Antibody Nonreactive Nonreactive [facility] Comment:Antibodies to HCV no t detected; does not exclude early acuteHCV infection. Blood Venous blood specimen / Unknown 07/22/2023 9:19 AM EDT 07/22/2023 2:20 PM EDT Cristian Masters MD LAB BLOOD ORDERABL ES Final Result [facility] [address] [place] [phone] [phone] * (ABNORMAL) Lipid Panel, Standard (07/22/2023 9:19 AM EDT) Triglycerides 144 <150 mg/dL [facility] Comment:Desirable Triglyceri de: less than 150 mg/dLBorderline High Triglyceride 150-199 mg/dLHigh Triglyceride: 200-499 mg/dLVery High Triglyceride: greater than or equal to 5OO mg/dL Cholesterol 219(H) <200 mg/dL [facility] Comment:Desirable Cholestero l: less than 200 mg/dLBorderline High Cholesterol: 200-239 mg/dLHigh Cholesterol: greater than 239 mg/dL LDL Cholesterol Calculated 141(H) <100 mg/dL [facility] Comment:Desirable LDL: less than 100 mg/dLNear Optimal/Above Optimal LDL: 110- 129 mg/dLBorderline High LDL: 130-159 mg/dLHigh LDL: 160-189 mg/dLVery High LDL: greater than or equal to 190 mg/dL HDL Cholesterol 50 >40 mg/dL [facility] Comment:Desirable HDL: great er than 40 mg/dL Note: This HDL assay may give artificially low results in patients with liver disease. Blood Venous blood specimen / Unknown 07/22/2023 9:19 AM EDT 07/22/2023 2:20 PM EDT Cristian Masters MD LAB BLOOD ORDERABL ES Final Result [facility] [address] [place] [address] [phone] from Last 3 Months or Most Recently Relevant to Health Maintenance Insurance [employer] PPO Advance Directives Documents on File Type Date Recorded Patient Memory Care Program Director Expl anation Advance Directives and Living Will 02/20/2023 photo id Care Teams Nitroglycerin Separator Operator Relationship Specialty Start Date End Date KaminskiCristian Quiles MD [address] [place] [id number] PCP - General Internal Medicine 05/18/19
--- OUTSIDE RECORDS SUMMARY | 2025-01-04 20:26 | XMS_ITS | Encounter Summary ---
Author Organization [employer] Address [address] [place] [address] [address] [place] [address] Care Team Providers Care [employer] Spanish Teacher Name Role Phone Cristian Perales MD Primary Care Prov ider Encounter Details Date Type Department Care Team ([facility] st Contact Info) Description 06/04/2022 Orders Only [facility] MED [facility] PEDS [address] [place], [place] [phone] Cristian Perales MD [address] [place], [place] [phone] Social History Tobacco Use Types Packs/Day Years [...] suspected to have Coronavirus/COVID-19? No / Unsure 06/04/2022 10:25 AM EDT documented as of this encounter Plan of Treatment Not on file documented as of this encounter Visit Diagnoses Not on filedocumented in this encounter Additional Health Concerns Assessment Noted Time PHQ-9 Depression Total Score: 0 01/27/20 22 8:59 AM EST documented as of this encounter Care Teams [employer] Spanish Teacher Relationship Specialty Start Date End Date KaminskiCristian Quiles MD [address] [place] [id number] PCP - General Internal Medicine 05/18/19 documented as of this encounter
== END 2025-01-04 16:33 | disposition home or self-care (01) ==
LOC: HO.CT 16:32
PROVIDERS: PCP Internal Medicine; Visit Provider Physician Assistant Medical
DX: F17.210 Nicotine dependence, cigarettes, uncomplicated (principal)
CPT/HCPCS: 71271

== ENCOUNTER → 2025-01-04 16:35 | Outpatient (BNV) | payer MEDICARE, SELFPAY | PROVIDERS: PCP Internal Medicine; Visit Provider Radiology Diagnostic Radiology | DX: F17.210 Nicotine dependence, cigarettes, uncomplicated (principal) | CPT/HCPCS: 71271 ==